=== PATIENT | male | born 1985 | race Two or more races ===

== ENCOUNTER 2018-02-12 11:23 | Emergency (ER) | payer MEDICAID ==
[~2018-02-12] VITALS: Ht 182.9 cm; Wt 77.1 kg
[2018-02-12 11:39] VITALS: BP 143/105
== END 2018-02-12 13:02 | disposition home or self-care (01) ==
LOC: ER 11:23
DX: M79.604 Pain in right leg (principal)
CPT/HCPCS: 93971